=== PATIENT | female | born 1985 | race Caucasian/White ===

== ENCOUNTER 2019-11-08 16:58 | Emergency (ER) | payer OTHER, SELFPAY ==
--- NOTE | ~2019-11-08 | XR_ITS ---
EXAMINATION: XR wrist LT min 3V DATE: 11/08/2019 17:18 INDICATION: Left wrist injury and pain. TECHNIQUE: 4 views of left wrist were obtained. COMPARISON: None. FINDINGS: Bone alignment is normal. There is a nondisplaced fracture of dorsal aspect of distal radia l metaphysis. Ulnar styloid is intact. Joint spaces are normal. There is dorsal wrist soft tissue swe lling. IMPRESSION: 1. Nondisplaced fracture of dorsal aspect of distal radial metaphysis. Reviewed, dictated and finalized at location A. ECT FACILITATOR
[2019-11-08 17:09] VITALS: BP 139/83; PULSE 92; RESP 18; TEMP 37.3; O2SAT 100
--- NOTE | 2019-11-08 17:31 | ED.UPPEXIN ---
HPI - Extremity Injury (Upper) General Chief Complaint: Extremity Injury, Upper Stated Complaint: left wrist pain Time Seen by Provider: 11/08/19 17:23 Source: patient and RN notes reviewed Mode of arrival: ambulatory Limitations: no limitations History of Present Illness HPI narrative: Patient presents today complaint of an injury to her left wrist. She fell onto an outstretched hand, off a hover board approximately 1 hour prior to arrival. Denies numbness or tingling in the arm or hand. Pain increases with range of motion. Currently rates her pain 6/10. She applied ice after arrival. complaint: injury to: left and wrist Related Data Home Medications Medication Instructions Recorded Confirmed No Home Medications 11/08/19 11/08/19 Allergies Allergy/AdvReac Type Severity Reaction Status Date / Time No Known Allergies Allergy Uncoded 07/05/19 10:17 Review of Systems Review of Systems: Narrative: CONSTITUTIONAL: Denies body aches, fever, chills, or sweats. EYES: Denies visual changes, redness, or discharge. ENT: Denies rhinorrhea, congestion, sore throat, or otalgia. CARDIOVASCULAR: Denies chest pain, palpitations, or edema. RESPIRATORY: Denies cough or dyspnea. GASTROINTESTINAL: Denies abdominal pain, nausea, vomiting, or diarrhea. GENITOURINARY: Denies dysuria or hematuria. SKIN: Denies rash, itching, or wounds. MUSCULOSKELETAL: Denies back pain, or myalgia.+ Left wrist pain NEUROLOGIC: Denies headache, numbness, tingling, or weakness. PSYCH: Denies depression or anxiety. PMFSH Comments At time of signature, I have reviewed and agree with nursing past medical, surgical, social and family history unless otherwise noted. Please see nursing chart for further information. There is no relevant family history pertinent to the presenting complaint Exam Narrative: Exam Narrative: GENERAL: Well-appearing, well-nourished, and in no acute distress. HEAD: Normocephalic, atraumatic. EYES: EOMI. No redness or drainage. Conjunctivae normal. ENT: Mucous membranes pink and moist. NECK: Normal AROM. CHEST: No respiratory distress. EXTREMITIES: Left wrist: Tenderness to the distal radius with moderate swelling on the dorsal aspect. No tenderness to the distal ulna. No tenderness to the metacarpals or snuffbox. No ecchymosis or erythema noted. Distal sensation intact. Capillary refill normal. Radial pulse normal. SKIN: Warm, dry, no rash. NEURO: No focal deficits. Alert and oriented x3. Gait steady. PSYCH: Normal affect. No signs of depression or anxiety. Course Vital Signs Vital signs: Vital Signs Temperature 99.2 F 11/08/19 17:09 Pulse Rate 92 11/08/19 17:09 Respiratory Rate 18 11/08/19 17:09 Blood Pressure 139/83 11/08/19 17:09 Pulse Oximetry 100 11/08/19 17:09 Temperature 99.2 F 11/08/19 17:09 Pulse Rate 92 11/08/19 17:09 Respiratory Rate 18 11/08/19 17:09 Blood Pressure 139/83 11/08/19 17:09 Pulse Oximetry 100 11/08/19 17:09 Reviewed. Pt has been instructed to follow up with her PCP regarding her elevated blood pressure today. Procedures Orthopedic Splinting/Casting Injury #1: Splinting/Casting Date: 11/08/19 Splinting/Casting Time: 17:35 Side: left Upper Extremity Injury Location: wrist Upper Extremity Immobilizer: volar splint OCL: volar Pre-Procedure Neuro Vascular Exam: normal Post-Procedure Neuro Vascular Exam: normal MDM - Extremity Injury (Upper) Differential Diagnosis Differential diagnosis: Likely sprain and strain of wrist and fracture of wrist Imaging Data Radiologist's impression: ITS Impressions Wrist X-Ray 11/08/19 17:32 IMPRESSION: 1. Nondisplaced fracture of dorsal aspect of distal radial metaphysis. Critical Care Time Critical Care Time Critical Care Time: No Discharge Plan Discharge Clinical Impression: Distal radius fracture, left Qualifiers: Encounter
== END 2019-11-08 17:52 | disposition home or self-care (01) ==
PROVIDERS: Emergency Provider Nurse Practitioner
DX: S52.502A Unspecified fracture of the lower end of left radius, initial encounter for closed fracture (principal); V00.181A Fall from other rolling-type pedestrian conveyance, initial encounter
CPT/HCPCS: 73110; 99214; A4565; G0463

== ENCOUNTER 2022-10-18 18:21 | Emergency (ER) | payer OTHER, SELFPAY ==
--- NOTE | ~2022-10-18 | XR_ITS ---
XR foot LT min 3V DATE: 10/18/2022 18:42 INDICATION: Inversion injury. Pain and swelling of lateral aspect of foot TECHNIQUE: 4 views COMPARISON: None FINDINGS: Mild posterior calcaneal enthesopathy. No fracture, dislocation, periosteal reaction or bone destruction. IMPRESSION: No fracture or dislocation Reviewed, dictated and finalized at location A. RETTE FILTER INSPECTOR IMPRESSION: No fracture or dislocation
--- NOTE | 2022-10-18 18:28 | ED.LOWEXIN ---
HPI - Extremity Injury (Lower) General Chief Complaint: Extremity Injury, Lower Stated Complaint: Lt Foot Pain Due to Fall Time Seen by Provider: 10/18/22 18:35 Source: patient Mode of arrival: ambulatory Limitations: no limitations History of Present Illness HPI Narrative: Beth is a 37-year-old female patient presenting to the clinic today with complaints of left lateral foot pain. She reports that she possibly inverted her foot when she stepped off a curve when putting her recycling at the curve. States she was putting a box in the recycling bin and stepped back onto the curb and injured her foot. States she felt a pop. Has pain and swelling to the lateral foot Related Data Home Medications Medication Instructions Recorded Confirmed No Home Medications 11/08/19 11/08/19 Allergies Allergy/AdvReac Type Severity Reaction Status Date / Time No Known Allergies Allergy Uncoded 07/05/19 10:17 Review of Systems Review of Systems: Pertinent positives per HPI. Patient denies any fever, chills, rash, headache, visual changes, dizziness, cough, runny nose, sore throat, shortness of breath, chest pain, palpitations, nausea, vomiting, diarrhea, constipation, abdominal pain, or any urinary issues. PMFSH Comments At the time of my signature, I reviewed and agree with the nursing past medical, surgical, social, and family history. There is no relevant family history pertinent to the patient complaint. Exam Narrative: General: Well-developed, well nourished, in no apparent distress Head: Normocephalic, atraumatic. Cardio: Regular rate and rhythm, s1 and s2 normal, no murmur appreciated. Resp: Clear to auscultation bilaterally, no rhonchi, rales, wheezing or rubs. Musculoskeletal: No deformity, redness and swelling noted to the left lateral foot, tender to palpation over the left lateral foot with pain with plantar flexion and dorsal flexion, also has pain with ambulating, grossly normal range of motion, muscle strength strong and equal, peripheral pulse strong, no cyanosis, normal gait and station Course Course Emergency Course: Portions of this record may have been created with voice recognition software. Level of Care: Express Care Visit Vital Signs Vital signs: Vital Signs Temperature 37.1 C 10/18/22 18:32 Pulse Rate 94 10/18/22 18:32 Respiratory Rate 18 10/18/22 18:32 Blood Pressure 131/90 10/18/22 18:32 Pulse Oximetry 100 10/18/22 18:32 Oxygen Delivery Room Air 10/18/22 18:32 Temperature 37.1 C 10/18/22 18:32 Pulse Rate 94 10/18/22 18:32 Respiratory Rate 18 10/18/22 18:32 Blood Pressure 131/90 10/18/22 18:32 Pulse Oximetry 100 10/18/22 18:32 Oxygen Delivery Room Air 10/18/22 18:32 Vital signs reviewed MDM - Extremity Injury (Lower) MDM Narrative Medical decision making narrative: At the time of visit patient is resting comfortably on the exam table. X-ray was performed was negative for any sign of fracture or malalignment. I suspect patient has a left foot sprain. Dillon wrap was applied and sensation circulation motion was within normal limits. Supportive measures were discussed with the patient she voiced understanding discharge instructions and agrees to treatment plan. Differential Diagnosis Differential diagnosis: Likely other (Foot contusion, foot sprain, foot fracture) Imaging Data Radiologist's impression: Close Foot X-Ray (Signed) Pete Ahumada - 10/18/22 [facility] [place] [address] XRay Report Signed Patient: Beth Arambula : 1985 MR#: [id number] Age/Sex: 37 / F Acct:[id number] Loc: [facility]? ? ADM Date: 10/18/22Attending Dr: Ordering Physician: Grady Cowan APRN Date of Service: 10/18/22 Procedure(s): XR foot LT min 3V Accession Number(s): [id number] cc: Grady Cowan APRN; DRY BOX TENDER PHYSICIAN~ XR foot
[2022-10-18 18:32] VITALS: BP 131/90; PULSE 94; RESP 18; TEMP 37.1; O2SAT 100
== END 2022-10-18 19:06 | disposition home or self-care (01) ==
PROVIDERS: Emergency Provider Nurse Practitioner Family
DX: S93.602A Unspecified sprain of left foot, initial encounter (principal); T14.90XA Injury, unspecified, initial encounter
CPT/HCPCS: 73630; 99213; G0463